=== PATIENT | female | born 1965 | race African-American/Black ===

== ENCOUNTER 2017-08-17 17:11 | Emergency (ER) | payer OTHER ==
[~2017-08-17] VITALS: Ht 188 cm; Wt 120.2 kg
[~2017-08-17 17:11] MED LIST: COLACE 100 MG100 MG PO; IBUPROFEN 600600 M1 PO; LEVOTHYROXINE 0.15MG PO; LISINOPRIL-HCT1 EACH PO; METFORMIN HCL500 MG PO; PERCOCET PO
[2017-08-17] MEDS ORDERED: ESTRADIOL 1 MG T1 M1 PO (17:55)
[2017-08-17 18:21] LABS: URINE BILIRUBIN NEGATIVE (Negative); URINE BLOOD NEGATIVE (Negative); URINE COLOR YELLOW; URINE GLUCOSE-RANDOM* NEGATIVE (Negative); URINE KETONES NEGATIVE (Negative); URINE NITRITE NEGATIVE (Negative); URINE PROTEIN (DIPSTICK) NEGATIVE (Negative); URINE SPECIFIC GRAVITY 1.025 (1.003-1.035); URINE UROBILINOGEN 0.2 E.U./dl (0.2-1.0)
[2017-08-17 18:22] LABS: ABSOLUTE NEUTROPHILS 4.5 thou/uL (1.4-8.2); EOSINOPHILS 4.1 % (0.0-3.0); HEMATOCRIT 42.4 % (37.0-47.0); HEMOGLOBIN 13.8 gm/dL (12.0-15.0); LYMPHOCYTES 27.5 % (24.0-44.0); MCHC 32.7 g/dL (28.0-37.0); MCV 82.6 fL (80.0-100.0); MONOCYTES 7.2 % (1.0-8.0); PLATELET COUNT 257 thou/uL (150-400); POLYS 60.2 % (36.0-66.0); RBC 5.13 mil/uL (4.20-5.00); RDW 14.2 % (10.5-14.5); WBC 7.5 thou/uL (4.0-11.0)
[2017-08-17 18:27] LABS: MANUAL DIFF NO
[2017-08-17 18:32] LABS: ANION GAP 10 mmol/L (7-16); BUN 13 mg/dL (7-18); CALCIUM 8.8 mg/dL (8.5-10.1); CHLORIDE 99 mmol/L (98-107); CO2 26 mmol/L (21-32); CREATININE 0.8 mg/dL (0.6-1.0); GLUCOSE 165 mg/dL (74-106); POTASSIUM 3.5 mmol/L (3.5-5.1); SODIUM 135 mmol/L (136-145)
[2017-08-17 18:38] LABS: ALBUMIN 3.6 g/dL (3.4-5.0); ALKALINE PHOSPHATASE 98 U/L (46-116); DIRECT BILIRUBIN < 0.1 mg/dL (<0.1-0.3); SGOT 30 U/L (15-37); SGPT 35 U/L (30-65); TOTAL BILIRUBIN 0.4 mg/dL (<0.1-1.0); TOTAL PROTEIN 8.1 g/dL (6.4-8.2)
== END 2017-08-17 19:44 | disposition home or self-care (01) ==
LOC: ER 17:11
PROVIDERS: Nurse Practitioner
DX: R10.9 Unspecified abdominal pain (principal); R51 Headache; K21.9 Gastro-esophageal reflux disease without esophagitis; I10 Essential (primary) hypertension; F32.9 Major depressive disorder, single episode, unspecified; E11.9 Type 2 diabetes mellitus without complications; E89.0 Postprocedural hypothyroidism; G47.30 Sleep apnea, unspecified; Z86.2 Personal history of diseases of the blood and blood-forming organs and certain disorders involving the immune mechanism; Z88.1 Allergy status to other antibiotic agents

== ENCOUNTER 2019-06-10 17:23 | Emergency (ER) | payer OTHER ==
[~2019-06-10] VITALS: Ht 188 cm; Wt 116.6 kg
[~2019-06-10 17:23] MED LIST changes: +ESTRADIOL 1 MG T1 M1 PO
[2019-06-10] MEDS ORDERED: LISINOPRIL10 MG PO (17:43)
[2019-06-10 18:10] LABS: ABSOLUTE NEUTROPHILS 4.6 thou/uL (1.4-8.2); BASOPHILS 1.1 % (0.0-2.0); EOSINOPHILS 4.2 % (0.0-3.0); HEMATOCRIT 43.6 % (37.0-47.0); HEMOGLOBIN 14.3 gm/dL (12.0-15.0); LYMPHOCYTES 29.8 % (24.0-44.0); MCH 27.3 pg (26.0-34.0); MCHC 32.7 g/dL (28.0-37.0); MCV 83.4 fL (80.0-100.0); MONOCYTES 6.3 % (1.0-8.0); PLATELET COUNT 258 thou/uL (150-400); POLYS 58.6 % (36.0-66.0); RBC 5.23 mil/uL (4.20-5.00); RDW 14.1 % (10.5-14.5); WBC 7.8 thou/uL (4.0-11.0)
[2019-06-10 18:24] LABS: ANION GAP 12 mmol/L (7-16); BUN 14 mg/dL (7-18); CALCIUM 9.5 mg/dL (8.5-10.1); CHLORIDE 101 mmol/L (98-107); CO2 26 mmol/L (21-32); CREATININE 0.8 mg/dL (0.6-1.0); GLUCOSE 160 mg/dL (74-106); POTASSIUM 3.8 mmol/L (3.5-5.1); SODIUM 139 mmol/L (136-145)
[2019-06-10 18:33] LABS: TROPONIN-I <0.06 ng/mL (<0.06)
[2019-06-10 19:56] VITALS: BP 117/52
--- NOTE | 2019-06-11 12:27 | EKG ---
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: CHEMO : 1965 Requested By: Audelia Das Order Number: [id number] MD: Cr Salvador Measurements Intervals [place] Rate: 70 P: -7 ID: 188 QRS: -34 QRSD: 93 T: 4 QT: 390 QTc: 421 Interpretive Statements Sinus rhythm Left axis deviation Poor R wave progression RSR' in V1 or V2, right VCD No previous ECG available for comparison Electronically Signed On 06-11-2019 12:26:52 CDT by Cr Salvador [email or web address] <ELECTRONICALLY SIGNED> By: Cr Salvador MD, [facility] 06/11/19 1226 D: 09/1721 21 Cr Salvador MD, FACC /EPI
== END 2019-06-10 19:57 | disposition home or self-care (01) ==
LOC: ER 17:23
PROVIDERS: Emergency Medicine
DX: R07.89 Other chest pain (principal); I10 Essential (primary) hypertension; E11.9 Type 2 diabetes mellitus without complications; G47.30 Sleep apnea, unspecified; K21.9 Gastro-esophageal reflux disease without esophagitis; F32.9 Major depressive disorder, single episode, unspecified; Z90.89 Acquired absence of other organs; Z86.2 Personal history of diseases of the blood and blood-forming organs and certain disorders involving the immune mechanism; Z98.890 Other specified postprocedural states; Z88.1 Allergy status to other antibiotic agents

== ENCOUNTER 2019-08-01 19:04 | Emergency (ER) | payer OTHER ==
[~2019-08-01] VITALS: Ht 188 cm; Wt 115.7 kg
[~2019-08-01 19:04] MED LIST changes: -LEVOTHYROXINE 0.15MG PO; +LISINOPRIL10 MG PO; +SYNTHROID175 MCG PO
[2019-08-01 21:11] VITALS: BP 163/56
== END 2019-08-01 21:08 | disposition home or self-care (01) ==
LOC: ER 19:04
DX: S30.0XXA Contusion of lower back and pelvis, initial encounter (principal); I10 Essential (primary) hypertension; E11.9 Type 2 diabetes mellitus without complications; G47.30 Sleep apnea, unspecified; K21.9 Gastro-esophageal reflux disease without esophagitis; F32.9 Major depressive disorder, single episode, unspecified; Z88.1 Allergy status to other antibiotic agents; Z86.2 Personal history of diseases of the blood and blood-forming organs and certain disorders involving the immune mechanism; V89.2XXA Person injured in unspecified motor-vehicle accident, traffic, initial encounter; Y92.89 Other specified places as the place of occurrence of the external cause; Y93.89 Activity, other specified; Y99.8 Other external cause status

== ENCOUNTER 2020-06-05 09:34 | Emergency (ER) | payer OTHER ==
[~2020-06-05] VITALS: Ht 188 cm; Wt 108.4 kg
[2020-06-05 10:55] LABS: ABSOLUTE NEUTROPHILS 3.1 thou/uL (1.4-8.2); BASOPHILS 0.9 % (0.0-2.0); EOSINOPHILS 4.4 % (0.0-3.0); HEMATOCRIT 39.4 % (37.0-47.0); HEMOGLOBIN 12.9 gm/dL (12.0-15.0); LYMPHOCYTES 23.6 % (24.0-44.0); MCH 27.6 pg (26.0-34.0); MCHC 32.7 g/dL (28.0-37.0); MCV 84.4 fL (80.0-100.0); MONOCYTES 7.5 % (1.0-8.0); PLATELET COUNT 240 thou/uL (150-400); POLYS 63.6 % (36.0-66.0); RBC 4.67 mil/uL (4.20-5.00); RDW 14.2 % (10.5-14.5); WBC 4.9 thou/uL (4.0-11.0)
[2020-06-05 11:29] VITALS: BP 135/77
== END 2020-06-05 11:31 | disposition home or self-care (01) ==
LOC: ER 09:34
PROVIDERS: Emergency Medicine
DX: N93.8 Other specified abnormal uterine and vaginal bleeding (principal); S30.814A Abrasion of vagina and vulva, initial encounter; I10 Essential (primary) hypertension; E11.9 Type 2 diabetes mellitus without complications; F32.9 Major depressive disorder, single episode, unspecified; K21.9 Gastro-esophageal reflux disease without esophagitis; Z90.711 Acquired absence of uterus with remaining cervical stump; Z90.89 Acquired absence of other organs; Z79.899 Other long term (current) drug therapy; Z88.1 Allergy status to other antibiotic agents; X58.XXXA Exposure to other specified factors, initial encounter; Y93.89 Activity, other specified; Y92.89 Other specified places as the place of occurrence of the external cause; Y99.8 Other external cause status

== ENCOUNTER 2021-08-21 16:03 | Emergency (ER) | payer OTHER ==
[~2021-08-21] VITALS: Ht 188 cm; Wt 109.8 kg
[2021-08-21] MEDS ORDERED: VALIUM2 MG PO (17:44)
[2021-08-21 18:09] VITALS: BP 131/81
== END 2021-08-21 18:10 | disposition home or self-care (01) ==
LOC: ER 16:03
DX: M54.6 Pain in thoracic spine (principal); E11.9 Type 2 diabetes mellitus without complications; I10 Essential (primary) hypertension; K21.9 Gastro-esophageal reflux disease without esophagitis; Z88.8 Allergy status to other drugs, medicaments and biological substances; Z79.899 Other long term (current) drug therapy; Z90.710 Acquired absence of both cervix and uterus; Z90.89 Acquired absence of other organs; V49.88XA Car occupant (driver) (passenger) injured in other specified transport accidents, initial encounter; Y93.89 Activity, other specified; Y92.413 State road as the place of occurrence of the external cause; Y99.9 Unspecified external cause status

== ENCOUNTER → 2021-09-15 | Outpatient (CLI) | payer OTHER ==
[~2021-09-15] MED LIST changes: +VALIUM2 MG PO
== END ==
LOC: RAD 09-09 13:45
DX: M47.816 Spondylosis without myelopathy or radiculopathy, lumbar region (principal); M51.36 Other intervertebral disc degeneration, lumbar region; M43.16 Spondylolisthesis, lumbar region; M25.78 Osteophyte, vertebrae